=== PATIENT | male | born 1935 | race African-American/Black ===

== ENCOUNTER 2020-10-30 21:50 | Inpatient (IN) | payer BC, MEDICARE, OTHER ==
[~2020-10-30] VITALS: Ht 195.6 cm; Wt 62.8 kg
[~2020-10-30 21:50] MED LIST: ETOMIDATE 2MG/ML 10ML VIAL IV ONE; SUCCINYLCHOLINE CHLORIDE 200MG/10ML IV ONE
[2020-10-30] MEDS ORDERED: PIPERACILLIN/TAZ 3.375G PREMIX 50 ML IV ONE (22:15)
[2020-10-30] MEDS ORDERED: MIDAZOLAM HCL 2 MG/2 ML VIAL IV ONE (22:15)
[2020-10-30] MEDS ORDERED: SODIUM CHLORIDE 0.9% 1,000 ML IV ONE ×2 (22:15)
[2020-10-30] MEDS ORDERED: SUCCINYLCHOLINE CHLORIDE 200MG/10ML IV ONE (22:15)
[2020-10-30] MEDS ORDERED: FENTANYL CITRATE/PF 2,500 MCG in SODIUM CHLORIDE 0.9% 200 ML IV PRN (22:15)
[2020-10-30] MEDS ORDERED: ETOMIDATE 2MG/ML 10ML VIAL IV ONE (22:15)
[2020-10-30] MEDS ORDERED: VANCOMYCIN 1 G PREMIX 200 ML IV ONE (22:15)
[2020-10-30] MEDS: FENTANYL CITRATE/PF 2,500 MCG in SODIUM CHLORIDE 0.9% 200 ML IV PRN (22:33)
[2020-10-30 22:44] LABS: BG BASE EXCESS 1.9 mmol/L (-2.0-2.0); BG CARBOXYHEMOGLOBIN 0.3 % (0.5-1.5); BG DEOXYHEMOGLOBIN 0.3 % (0.0-5.0); BG FRACTION INSPIRED OXYGEN 100; BG METHEMOGLOBIN 0.3 % (0.0-1.5); BG OXYGEN SATURATION 99.7 % (92.0-98.5); BG OXYHEMOGLOBIN 99.1 % (94.0-97.0); BG PCO2 50.4 mmHg (35.0-45.0); BG PH 7.362 (7.350-7.450); BG PO2 409.8 mmHg (75.0-100.0); BG SAMPLE SITE RIGHT BRACHIAL; BG TOTAL HEMOGLOBIN 11.9 g/dL (12.0-18.0); BG VENT MODE VENT - AC
[2020-10-30 23:03] LABS: HEMATOCRIT. 31.5 % (42.0-52.0); HEMOGLOBIN. 10.5 g/dL (14.0-18.0); MEAN CORPUSCULAR HEMOGLOBIN 31.1 pg (28.0-32.0); MEAN CORPUSCULAR VOLUME 92.8 fL (80.0-94.0); MEAN PLATELET VOLUME 8.4 fl (7.4-10.4); PLATELET 281 x1000/uL (130-400); RED BLOOD CELL COUNT 3.39 mill/uL (4.7-6.1)
[2020-10-30 23:10] LABS: CHLORIDE 114 mEq/L (98-107)
[2020-10-30 23:13] LABS: INR 1.2
[2020-10-31] VITALS (49 sets, daily range): BP systolic 105–144; BP diastolic 53–92
[2020-10-31 00:15] LABS: PLATELET ESTIMATE NORMAL
[2020-10-31] MEDS ORDERED: MIDAZOLAM HCL 2 MG/2 ML VIAL IV ONE (01:30)
[2020-10-31 02:41] LABS: CLARITY URINE CLEAR (CLEAR); COLOR URINE YELLOW (YELLOW); KETONES URINE NEGATIVE (NEGATIVE); LEUKOCYTE ESTERASE URINE NEGATIVE (NEGATIVE); NITRITE URINE NEGATIVE (NEGATIVE); OCCULT BLOOD URINE NEGATIVE (NEGATIVE); PH URINE 6.5 (4.5-8.0); PROTEIN URINE 2+ (NEGATIVE); SPECIFIC GRAVITY URINE 1.027 (1.005-1.030); UROBILINOGEN URINE 0.2 E.U./dL (0.2-1.0)
[2020-10-31] MEDS: FENTANYL CITRATE/PF 2,500 MCG in SODIUM CHLORIDE 0.9% 200 ML IV PRN (10:55)
[2020-10-31 12:26] LABS: BG BASE EXCESS 3.6 mmol/L (-2.0-2.0); BG CARBOXYHEMOGLOBIN 0.3 % (0.5-1.5); BG DEOXYHEMOGLOBIN 3.3 % (0.0-5.0); BG HCO3 ACT 27.9 mmol/L (22.0-26.0); BG METHEMOGLOBIN 0.4 % (0.0-1.5); BG OXYGEN SATURATION 96.7 % (92.0-98.5); BG PCO2 41.5 mmHg (35.0-45.0); BG PH 7.446 (7.350-7.450); BG PO2 83.2 mmHg (75.0-100.0); BG SAMPLE SITE RIGHT RADIAL; BG TOTAL HEMOGLOBIN 11.3 g/dL (12.0-18.0); BG VENT MODE VENT - AC
[2020-10-31] MEDS ORDERED: DEXTROSE 50% WATER 50ML SYRINGE IV PRN ×2 (13:15→13:30)
[2020-10-31] MEDS ORDERED: ONDANSETRON HCL 4MG/2ML INJ IV PRN (13:15)
[2020-10-31] MEDS ORDERED: PIPERACILLIN/TAZ 3.375G PREMIX 50 ML IV SCH (13:15)
[2020-10-31] MEDS: SODIUM CHLORIDE 0.9% 1,000 ML IV SCH (14:13)
[2020-10-31] MEDS: VANCOMYCIN 750 MG PREMIX 150 ML IV SCH (14:41)
[2020-10-31] MEDS: PIPERACILLIN/TAZOBACTAM 3.375 G in DEXT 5% WATER 100 ML IV SCH ×2 (14:41→21:27)
[2020-10-31] MEDS ORDERED: ENOXAPARIN 40MG/0.4ML SYR SUBCUT SCH (15:00)
[2020-10-31] MEDS ORDERED: ENOXAPARIN 30MG/0.3ML SYR SUBCUT SCH (16:00)
[2020-10-31] MEDS ORDERED: INSULIN LISPRO 100 UNITS/ML SUBCUT SCH (17:00)
[2020-10-31] MEDS ORDERED: FENTANYL CITRATE/PF 1,000 MCG in SODIUM CHLORIDE 0.9% 80 ML IV PRN (17:00)
[2020-10-31] MEDS ORDERED: FENTANYL CITRATE 2,500 MCG in SODIUM CHLORIDE 0.9% 200 ML IV PRN (17:00)
[2020-10-31] MEDS: IPRATROPIUM/ALBUTEROL 0.5-3(2.5)MG/3ML NEB NEB SCH ×2 (17:39→20:32)
[2020-10-31] MEDS: INSULIN LISPRO 100 UNITS/ML SUBCUT SCH ×2 (17:57→23:48)
[2020-10-31] MEDS: BLOOD SUGAR DIAGNOSTIC STRIP TEST SCH ×2 (17:57→23:48)
[2020-10-31 19:49] LABS: CREATINE KINASE 33 IU/L (39-308)
[2020-10-31 19:52] LABS: CREATINE KINASE MB FRACTION < 1.0 ng/mL (0.5-3.6)
[2020-10-31] MEDS: LEVETIRACETAM 500MG/5ML CUP GT SCH (21:27)
[2020-10-31 23:15] LABS: CREATINE KINASE 32 IU/L (39-308)
[2020-10-31 23:17] LABS: CREATINE KINASE MB FRACTION < 1.0 ng/mL (0.5-3.6)
[2020-11-01] VITALS (51 sets, daily range): BP systolic 94–138; BP diastolic 50–122
[2020-11-01] MEDS: IPRATROPIUM/ALBUTEROL 0.5-3(2.5)MG/3ML NEB NEB SCH ×6 (00:34→20:09)
[2020-11-01] MEDS: VANCOMYCIN 750 MG PREMIX 150 ML IV SCH ×2 (02:04→14:13)
[2020-11-01 05:12] LABS: HEMATOCRIT. 29.7 % (42.0-52.0); HEMOGLOBIN. 9.5 g/dL (14.0-18.0); MEAN CORPUSCULAR HEMOGLOBIN 30.3 pg (28.0-32.0); MEAN CORPUSCULAR VOLUME 94.9 fL (80.0-94.0); MEAN PLATELET VOLUME 8.6 fl (7.4-10.4); PLATELET 238 x1000/uL (130-400); RED BLOOD CELL COUNT 3.13 mill/uL (4.7-6.1)
[2020-11-01 05:16] LABS: CHLORIDE 114 mEq/L (98-107)
[2020-11-01] MEDS: SODIUM CHLORIDE 0.9% 1,000 ML IV SCH ×2 (05:17→18:07)
[2020-11-01] MEDS: PIPERACILLIN/TAZOBACTAM 3.375 G in DEXT 5% WATER 100 ML IV SCH ×3 (05:56→21:46)
[2020-11-01] MEDS: INSULIN LISPRO 100 UNITS/ML SUBCUT SCH ×4 (05:59→23:42)
[2020-11-01] MEDS: BLOOD SUGAR DIAGNOSTIC STRIP TEST SCH ×4 (05:59→23:42)
[2020-11-01] MEDS ORDERED: POTASSIUM CHLORIDE 20MEQ/PACKET PO SCH (07:15)
[2020-11-01 08:27] LABS: BG BASE EXCESS 1.6 mmol/L (-2.0-2.0); BG CARBOXYHEMOGLOBIN 0.1 % (0.5-1.5); BG DEOXYHEMOGLOBIN 2.3 % (0.0-5.0); BG FRACTION INSPIRED OXYGEN 40; BG HCO3 ACT 25.7 mmol/L (22.0-26.0); BG METHEMOGLOBIN 0.7 % (0.0-1.5); BG OXYGEN SATURATION 97.7 % (92.0-98.5); BG OXYHEMOGLOBIN 96.9 % (94.0-97.0); BG PCO2 38.5 mmHg (35.0-45.0); BG PH 7.442 (7.350-7.450); BG PO2 112.5 mmHg (75.0-100.0); BG SAMPLE SITE LEFT RADIAL; BG TOTAL HEMOGLOBIN 10.1 g/dL (12.0-18.0); BG VENT MODE VENT - AC
[2020-11-01] MEDS: LEVETIRACETAM 500MG/5ML CUP GT SCH ×2 (10:21→21:46)
[2020-11-01] MEDS: ENOXAPARIN 30MG/0.3ML SYR SUBCUT SCH (18:06)
[2020-11-01 19:10] LABS: PLATELET ESTIMATE NORMAL
[2020-11-02] VITALS (36 sets, daily range): BP systolic 104–139; BP diastolic 52–81
[2020-11-02] MEDS: IPRATROPIUM/ALBUTEROL 0.5-3(2.5)MG/3ML NEB NEB SCH ×6 (01:01→20:44)
[2020-11-02 01:29] LABS: CHLORIDE 114 mEq/L (98-107)
[2020-11-02] MEDS: VANCOMYCIN 750 MG PREMIX 150 ML IV SCH ×2 (02:54→14:19)
[2020-11-02] MEDS: SODIUM CHLORIDE 0.9% 1,000 ML IV SCH ×2 (05:15→10:30)
[2020-11-02] MEDS: PIPERACILLIN/TAZOBACTAM 3.375 G in DEXT 5% WATER 100 ML IV SCH ×3 (05:56→21:08)
[2020-11-02] MEDS: INSULIN LISPRO 100 UNITS/ML SUBCUT SCH ×4 (06:00→23:20)
[2020-11-02] MEDS: BLOOD SUGAR DIAGNOSTIC STRIP TEST SCH ×4 (06:43→23:18)
[2020-11-02] MEDS: LEVETIRACETAM 500MG/5ML CUP GT SCH ×2 (09:52→20:27)
[2020-11-02 14:48] LABS: BG BASE EXCESS 5.7 mmol/L (-2.0-2.0); BG CARBOXYHEMOGLOBIN 0.3 % (0.5-1.5); BG DEOXYHEMOGLOBIN 3.4 % (0.0-5.0); BG HCO3 ACT 29.6 mmol/L (22.0-26.0); BG METHEMOGLOBIN 0.2 % (0.0-1.5); BG OXYGEN SATURATION 96.6 % (92.0-98.5); BG OXYHEMOGLOBIN 96.1 % (94.0-97.0); BG PCO2 40.7 mmHg (35.0-45.0); BG PO2 83.9 mmHg (75.0-100.0); BG SAMPLE SITE RIGHT RADIAL; BG TOTAL HEMOGLOBIN 10.4 g/dL (12.0-18.0); BG TOTAL RESPIRATORY RATE 16 b/min; BG VENT MODE VENT - CPAP
[2020-11-02] MEDS: ENOXAPARIN 30MG/0.3ML SYR SUBCUT SCH (17:43)
[2020-11-02] MEDS: METHYLPREDNISOLONE SOD SUCC 40 MG/ML VIAL IV SCH (19:24)
[2020-11-02] MEDS: NYSTATIN POWDER 15GM TOP SCH (20:27)
[2020-11-03] VITALS (46 sets, daily range): BP systolic 105–148; BP diastolic 48–85
[2020-11-03] MEDS: IPRATROPIUM/ALBUTEROL 0.5-3(2.5)MG/3ML NEB NEB SCH ×7 (00:14→23:47)
[2020-11-03] MEDS: VANCOMYCIN 750 MG PREMIX 150 ML IV SCH ×2 (01:08→13:52)
[2020-11-03] MEDS: PIPERACILLIN/TAZOBACTAM 3.375 G in DEXT 5% WATER 100 ML IV SCH ×3 (05:34→21:00)
[2020-11-03] MEDS: BLOOD SUGAR DIAGNOSTIC STRIP TEST SCH ×4 (05:34→23:41)
[2020-11-03] MEDS: METHYLPREDNISOLONE SOD SUCC 40 MG/ML VIAL IV SCH ×2 (05:34→18:19)
[2020-11-03] MEDS: INSULIN LISPRO 100 UNITS/ML SUBCUT SCH ×4 (05:43→23:46)
[2020-11-03 05:56] LABS: CHLORIDE 109 mEq/L (98-107)
[2020-11-03 05:58] LABS: HEMATOCRIT. 29.3 % (42.0-52.0); HEMOGLOBIN. 9.6 g/dL (14.0-18.0); MEAN CORPUSCULAR HEMOGLOBIN 30.4 pg (28.0-32.0); MEAN PLATELET VOLUME 8.7 fl (7.4-10.4); PLATELET 279 x1000/uL (130-400); RED BLOOD CELL COUNT 3.15 mill/uL (4.7-6.1); RED CELL DISTRIBUTION WIDTH 14.1 % (11.6-14.6)
[2020-11-03] MEDS: LEVETIRACETAM 500MG/5ML CUP GT SCH ×2 (08:33→20:10)
[2020-11-03] MEDS: NYSTATIN POWDER 15GM TOP SCH ×2 (08:33→20:10)
[2020-11-03 10:13] LABS: PLATELET ESTIMATE NORMAL
[2020-11-03 11:05] LABS: BG CARBOXYHEMOGLOBIN 0.3 % (0.5-1.5); BG DEOXYHEMOGLOBIN 1.6 % (0.0-5.0); BG FRACTION INSPIRED OXYGEN 35; BG METHEMOGLOBIN 0.3 % (0.0-1.5); BG OXYGEN SATURATION 98.4 % (92.0-98.5); BG OXYHEMOGLOBIN 97.8 % (94.0-97.0); BG PCO2 39.9 mmHg (35.0-45.0); BG PH 7.464 (7.350-7.450); BG PO2 129.5 mmHg (75.0-100.0); BG SAMPLE SITE RIGHT RADIAL; BG TOTAL HEMOGLOBIN 10.2 g/dL (12.0-18.0); BG VENT MODE VENT - CPAP
[2020-11-03] MEDS: ACETYLCYSTEINE 100MG/ML 10% VIAL 4ML INH SCH ×2 (16:24→23:47)
[2020-11-03] MEDS: ENOXAPARIN 30MG/0.3ML SYR SUBCUT SCH (18:19)
[2020-11-03] MEDS ORDERED: ACETAMINOPHEN 650MG/20.3ML UDC PO PRN (20:45)
[2020-11-04] VITALS (39 sets, daily range): BP systolic 104–150; BP diastolic 31–91
[2020-11-04] MEDS: VANCOMYCIN 750 MG PREMIX 150 ML IV SCH ×2 (01:05→14:16)
[2020-11-04] MEDS: IPRATROPIUM/ALBUTEROL 0.5-3(2.5)MG/3ML NEB NEB SCH ×5 (03:56→20:15)
[2020-11-04 04:29] LABS: HEMATOCRIT. 30.7 % (42.0-52.0); HEMOGLOBIN. 9.9 g/dL (14.0-18.0); MEAN CORPUSCULAR HEMOGLOBIN 30.3 pg (28.0-32.0); MEAN CORPUSCULAR VOLUME 93.6 fL (80.0-94.0); MEAN PLATELET VOLUME 8.7 fl (7.4-10.4); PLATELET 311 x1000/uL (130-400); RED BLOOD CELL COUNT 3.28 mill/uL (4.7-6.1); RED CELL DISTRIBUTION WIDTH 14.5 % (11.6-14.6)
[2020-11-04 04:41] LABS: CHLORIDE 107 mEq/L (98-107)
[2020-11-04] MEDS: BLOOD SUGAR DIAGNOSTIC STRIP TEST SCH ×4 (05:09→23:53)
[2020-11-04] MEDS: INSULIN LISPRO 100 UNITS/ML SUBCUT SCH ×4 (05:10→23:54)
[2020-11-04] MEDS: PIPERACILLIN/TAZOBACTAM 3.375 G in DEXT 5% WATER 100 ML IV SCH ×3 (05:11→21:27)
[2020-11-04] MEDS: METHYLPREDNISOLONE SOD SUCC 40 MG/ML VIAL IV SCH ×2 (05:11→17:48)
[2020-11-04 07:41] LABS: BG BASE EXCESS 8.3 mmol/L (-2.0-2.0); BG CARBOXYHEMOGLOBIN 0.3 % (0.5-1.5); BG DEOXYHEMOGLOBIN 1.9 % (0.0-5.0); BG FRACTION INSPIRED OXYGEN 35; BG HCO3 ACT 32.7 mmol/L (22.0-26.0); BG METHEMOGLOBIN 0.2 % (0.0-1.5); BG OXYGEN SATURATION 98.1 % (92.0-98.5); BG OXYHEMOGLOBIN 97.6 % (94.0-97.0); BG PH 7.479 (7.350-7.450); BG PO2 109.6 mmHg (75.0-100.0); BG SAMPLE SITE RIGHT RADIAL; BG TOTAL HEMOGLOBIN 9.6 g/dL (12.0-18.0); BG TOTAL RESPIRATORY RATE 18 b/min; BG VENT MODE VENT - CPAP
[2020-11-04] MEDS: ACETYLCYSTEINE 100MG/ML 10% VIAL 4ML INH SCH ×3 (08:03→15:56)
[2020-11-04] MEDS: LEVETIRACETAM 500MG/5ML CUP GT SCH ×2 (09:12→20:21)
[2020-11-04] MEDS: NYSTATIN POWDER 15GM TOP SCH ×2 (09:13→20:23)
[2020-11-04 10:32] LABS: PLATELET ESTIMATE NORMAL
[2020-11-04] MEDS ORDERED: MORPHINE SULFATE 2 MG/ML CPJ (NOT FOR IM USE) IV PRN (14:45)
[2020-11-04] MEDS ORDERED: HYDRALAZINE 20MG/ML VIAL IV PRN (14:45)
[2020-11-04] MEDS: LORAZEPAM 2MG/ML CPJ IV PRN ×2 (16:01→21:59)
[2020-11-04] MEDS: ENOXAPARIN 30MG/0.3ML SYR SUBCUT SCH (17:48)
[2020-11-04] MEDS: FAMOTIDINE 20MG TABLET PO SCH (20:21)
[2020-11-04] MEDS: ATORVASTATIN CALCIUM 40MG TABLET GT SCH (23:56)
[2020-11-04] MEDS: CLOPIDOGREL 75MG TABLET GT SCH (23:56)
[2020-11-04] MEDS: ASPIRIN 81MG TABLET GT SCH (23:56)
[2020-11-05] VITALS (48 sets, daily range): BP systolic 66–140; BP diastolic 21–78
[2020-11-05] MEDS: ACETYLCYSTEINE 100MG/ML 10% VIAL 4ML INH SCH ×2 (00:12→08:54)
[2020-11-05] MEDS: IPRATROPIUM/ALBUTEROL 0.5-3(2.5)MG/3ML NEB NEB SCH ×6 (00:12→20:28)
[2020-11-05] MEDS: VANCOMYCIN 750 MG PREMIX 150 ML IV SCH (01:21)
[2020-11-05] MEDS: METHYLPREDNISOLONE SOD SUCC 40 MG/ML VIAL IV SCH ×2 (05:37→17:57)
[2020-11-05] MEDS: INSULIN LISPRO 100 UNITS/ML SUBCUT SCH ×3 (05:37→18:00)
[2020-11-05] MEDS: BLOOD SUGAR DIAGNOSTIC STRIP TEST SCH ×3 (05:37→18:53)
[2020-11-05] MEDS: PIPERACILLIN/TAZOBACTAM 3.375 G in DEXT 5% WATER 100 ML IV SCH ×3 (05:37→21:21)
[2020-11-05 05:57] LABS: CHLORIDE 107 mEq/L (98-107)
[2020-11-05 06:06] LABS: HEMATOCRIT. 27.9 % (42.0-52.0); MEAN CORPUSCULAR HEMOGLOBIN 30.3 pg (28.0-32.0); MEAN CORPUSCULAR VOLUME 93.5 fL (80.0-94.0); MEAN PLATELET VOLUME 8.7 fl (7.4-10.4); PLATELET 305 x1000/uL (130-400); RED BLOOD CELL COUNT 2.99 mill/uL (4.7-6.1); RED CELL DISTRIBUTION WIDTH 14.5 % (11.6-14.6)
[2020-11-05 07:59] LABS: BG BASE EXCESS 10.6 mmol/L (-2.0-2.0); BG CARBOXYHEMOGLOBIN 0.3 % (0.5-1.5); BG DEOXYHEMOGLOBIN 2.8 % (0.0-5.0); BG FRACTION INSPIRED OXYGEN 30; BG HCO3 ACT 35.1 mmol/L (22.0-26.0); BG METHEMOGLOBIN 0.3 % (0.0-1.5); BG OXYGEN SATURATION 97.2 % (92.0-98.5); BG OXYHEMOGLOBIN 96.6 % (94.0-97.0); BG PCO2 46.8 mmHg (35.0-45.0); BG PH 7.493 (7.350-7.450); BG PO2 89.6 mmHg (75.0-100.0); BG SAMPLE SITE RIGHT RADIAL; BG TOTAL HEMOGLOBIN 9.9 g/dL (12.0-18.0); BG VENT MODE VENT - CPAP
[2020-11-05] MEDS: CLOPIDOGREL 75MG TABLET GT SCH (10:36)
[2020-11-05] MEDS: ASPIRIN 81MG TABLET GT SCH (10:36)
[2020-11-05] MEDS: LEVETIRACETAM 500MG/5ML CUP GT SCH ×2 (10:36→20:38)
[2020-11-05] MEDS: NYSTATIN POWDER 15GM TOP SCH ×2 (10:38→22:20)
[2020-11-05] MEDS ORDERED: POTASSIUM CHLORIDE 20MEQ TABLET SR PO NR (10:45)
[2020-11-05 10:59] LABS: PLATELET ESTIMATE NORMAL
[2020-11-05] MEDS: LORAZEPAM 2MG/ML CPJ IV PRN (17:57)
[2020-11-05] MEDS: FAMOTIDINE 20MG TABLET PO SCH (20:38)
[2020-11-05] MEDS: ATORVASTATIN CALCIUM 40MG TABLET GT SCH (20:38)
[2020-11-06] VITALS (49 sets, daily range): BP systolic 93–138; BP diastolic 46–80
[2020-11-06] MEDS: BLOOD SUGAR DIAGNOSTIC STRIP TEST SCH ×4 (00:22→17:14)
[2020-11-06] MEDS: IPRATROPIUM/ALBUTEROL 0.5-3(2.5)MG/3ML NEB NEB SCH ×6 (00:24→20:44)
[2020-11-06] MEDS: ACETYLCYSTEINE 100MG/ML 10% VIAL 4ML INH SCH ×3 (00:24→15:31)
[2020-11-06] MEDS: PIPERACILLIN/TAZOBACTAM 3.375 G in DEXT 5% WATER 100 ML IV SCH ×4 (04:28→22:20)
[2020-11-06 05:49] LABS: BASOPHILS % 0.1 % (0.0-2.0); EOSINOPHILS % 0.7 % (0.0-5.0); HEMATOCRIT. 27.9 % (42.0-52.0); HEMOGLOBIN. 8.9 g/dL (14.0-18.0); LYMPHOCYTES % 8.3 % (20.0-50.0); MEAN CORPUSCULAR HEMOGLOBIN 30.1 pg (28.0-32.0); MEAN CORPUSCULAR VOLUME 94.1 fL (80.0-94.0); MEAN PLATELET VOLUME 8.7 fl (7.4-10.4); MONOCYTES % 9.3 % (2.0-8.0); NEUTROPHILS % 81.6 % (40.0-76.0); PLATELET 294 x1000/uL (130-400); RED BLOOD CELL COUNT 2.97 mill/uL (4.7-6.1); RED CELL DISTRIBUTION WIDTH 14.4 % (11.6-14.6)
[2020-11-06] MEDS: INSULIN LISPRO 100 UNITS/ML SUBCUT SCH ×4 (05:56→17:14)
[2020-11-06] MEDS: METHYLPREDNISOLONE SOD SUCC 40 MG/ML VIAL IV SCH (05:56)
[2020-11-06 05:57] LABS: CHLORIDE 108 mEq/L (98-107)
[2020-11-06] MEDS: CLOPIDOGREL 75MG TABLET GT SCH (08:23)
[2020-11-06] MEDS: NYSTATIN POWDER 15GM TOP SCH ×2 (08:23→20:03)
[2020-11-06] MEDS: ASPIRIN 81MG TABLET GT SCH (08:23)
[2020-11-06] MEDS: LEVETIRACETAM 500MG/5ML CUP GT SCH ×2 (08:23→20:02)
[2020-11-06] MEDS: FLUCONAZOLE 100MG TABLET PO SCH (15:49)
[2020-11-06] MEDS: ATORVASTATIN CALCIUM 40MG TABLET GT SCH (20:02)
[2020-11-06] MEDS: FAMOTIDINE 20MG TABLET PO SCH (20:02)
[2020-11-07] VITALS (48 sets, daily range): BP systolic 94–140; BP diastolic 50–90
[2020-11-07] MEDS: BLOOD SUGAR DIAGNOSTIC STRIP TEST SCH ×5 (00:03→23:11)
[2020-11-07] MEDS: IPRATROPIUM/ALBUTEROL 0.5-3(2.5)MG/3ML NEB NEB SCH ×6 (00:19→20:42)
[2020-11-07] MEDS: ACETYLCYSTEINE 100MG/ML 10% VIAL 4ML INH SCH ×3 (00:19→15:49)
[2020-11-07] MEDS: PIPERACILLIN/TAZOBACTAM 3.375 G in DEXT 5% WATER 100 ML IV SCH ×4 (03:45→21:38)
[2020-11-07 05:42] LABS: BASOPHILS % 0.1 % (0.0-2.0); EOSINOPHILS % 1.5 % (0.0-5.0); HEMATOCRIT. 27.9 % (42.0-52.0); HEMOGLOBIN. 8.8 g/dL (14.0-18.0); LYMPHOCYTES % 9.8 % (20.0-50.0); MEAN CORPUSCULAR HEMOGLOBIN 29.8 pg (28.0-32.0); MEAN CORPUSCULAR VOLUME 94.3 fL (80.0-94.0); MEAN PLATELET VOLUME 8.7 fl (7.4-10.4); MONOCYTES % 8.3 % (2.0-8.0); NEUTROPHILS % 80.3 % (40.0-76.0); PLATELET 282 x1000/uL (130-400); RED BLOOD CELL COUNT 2.96 mill/uL (4.7-6.1); RED CELL DISTRIBUTION WIDTH 14.5 % (11.6-14.6)
[2020-11-07 05:51] LABS: CHLORIDE 107 mEq/L (98-107)
[2020-11-07] MEDS: INSULIN LISPRO 100 UNITS/ML SUBCUT SCH ×5 (06:00→23:11)
[2020-11-07] MEDS: METHYLPREDNISOLONE SOD SUCC 40 MG/ML VIAL IV SCH (08:20)
[2020-11-07] MEDS: LEVETIRACETAM 500MG/5ML CUP GT SCH ×2 (08:20→20:12)
[2020-11-07] MEDS: CLOPIDOGREL 75MG TABLET GT SCH (08:20)
[2020-11-07] MEDS: ASPIRIN 81MG TABLET GT SCH (08:20)
[2020-11-07] MEDS: FLUCONAZOLE 100MG TABLET PO SCH (08:21)
[2020-11-07] MEDS: NYSTATIN POWDER 15GM TOP SCH ×2 (08:22→20:12)
[2020-11-07 08:51] LABS: BG BASE EXCESS 5.6 mmol/L (-2.0-2.0); BG CARBOXYHEMOGLOBIN 0.1 % (0.5-1.5); BG DEOXYHEMOGLOBIN 2.8 % (0.0-5.0); BG FRACTION INSPIRED OXYGEN 30; BG HCO3 ACT 29.4 mmol/L (22.0-26.0); BG OXYGEN SATURATION 97.2 % (92.0-98.5); BG OXYHEMOGLOBIN 96.1 % (94.0-97.0); BG PCO2 39.8 mmHg (35.0-45.0); BG PH 7.486 (7.350-7.450); BG PO2 102.1 mmHg (75.0-100.0); BG SAMPLE SITE RIGHT RADIAL; BG TOTAL HEMOGLOBIN 9.7 g/dL (12.0-18.0); BG VENT MODE VENT - CPAP
[2020-11-07] MEDS: ATORVASTATIN CALCIUM 40MG TABLET GT SCH (20:12)
[2020-11-07] MEDS: FAMOTIDINE 20MG TABLET PO SCH (20:12)
[2020-11-08] VITALS (43 sets, daily range): BP systolic 84–137; BP diastolic 50–76
[2020-11-08] MEDS: ACETYLCYSTEINE 100MG/ML 10% VIAL 4ML INH SCH ×3 (00:19→16:37)
[2020-11-08] MEDS: IPRATROPIUM/ALBUTEROL 0.5-3(2.5)MG/3ML NEB NEB SCH ×6 (00:19→20:23)
[2020-11-08] MEDS: PIPERACILLIN/TAZOBACTAM 3.375 G in DEXT 5% WATER 100 ML IV SCH ×4 (03:22→21:46)
[2020-11-08 04:49] LABS: BASOPHILS % 0.1 % (0.0-2.0); EOSINOPHILS % 1.2 % (0.0-5.0); HEMATOCRIT. 29.4 % (42.0-52.0); HEMOGLOBIN. 9.4 g/dL (14.0-18.0); LYMPHOCYTES % 7.4 % (20.0-50.0); MEAN CORPUSCULAR HEMOGLOBIN 30.3 pg (28.0-32.0); MEAN CORPUSCULAR VOLUME 94.7 fL (80.0-94.0); MEAN PLATELET VOLUME 8.6 fl (7.4-10.4); MONOCYTES % 8.7 % (2.0-8.0); NEUTROPHILS % 82.6 % (40.0-76.0); PLATELET 285 x1000/uL (130-400); RED CELL DISTRIBUTION WIDTH 14.1 % (11.6-14.6)
[2020-11-08 05:00] LABS: CHLORIDE 106 mEq/L (98-107)
[2020-11-08] MEDS: INSULIN LISPRO 100 UNITS/ML SUBCUT SCH ×3 (05:16→17:09)
[2020-11-08] MEDS: BLOOD SUGAR DIAGNOSTIC STRIP TEST SCH ×3 (05:16→17:09)
[2020-11-08] MEDS: METHYLPREDNISOLONE SOD SUCC 40 MG/ML VIAL IV SCH (09:00)
[2020-11-08] MEDS: FLUCONAZOLE 100MG TABLET PO SCH (09:00)
[2020-11-08] MEDS: LEVETIRACETAM 500MG/5ML CUP GT SCH ×2 (09:00→20:03)
[2020-11-08] MEDS: ASPIRIN 81MG TABLET GT SCH (09:00)
[2020-11-08] MEDS: CLOPIDOGREL 75MG TABLET GT SCH (09:00)
[2020-11-08] MEDS: NYSTATIN POWDER 15GM TOP SCH ×2 (09:01→20:04)
[2020-11-08] MEDS: FAMOTIDINE 20MG TABLET PO SCH (20:03)
[2020-11-08] MEDS: ATORVASTATIN CALCIUM 40MG TABLET GT SCH (20:04)
[2020-11-08] MEDS ORDERED: HYDRALAZINE 10 MG in SODIUM CHLORIDE 0.9% 49.5 ML IV PRN (23:00)
[2020-11-09] VITALS: BP 116/64
[2020-11-09] MEDS: BLOOD SUGAR DIAGNOSTIC STRIP TEST SCH ×4 (00:26→17:47)
[2020-11-09] MEDS: IPRATROPIUM/ALBUTEROL 0.5-3(2.5)MG/3ML NEB NEB SCH ×6 (01:00→21:52)
[2020-11-09] MEDS: PIPERACILLIN/TAZOBACTAM 3.375 G in DEXT 5% WATER 100 ML IV SCH ×4 (03:55→21:25)
[2020-11-09 04:00] VITALS: BP 90/65
[2020-11-09] MEDS: INSULIN LISPRO 100 UNITS/ML SUBCUT SCH ×4 (06:00→18:09)
[2020-11-09 08:00] VITALS: BP 97/57
[2020-11-09] MEDS: LEVETIRACETAM 500MG/5ML CUP GT SCH ×2 (09:08→20:43)
[2020-11-09] MEDS: METHYLPREDNISOLONE SOD SUCC 40 MG/ML VIAL IV SCH (09:08)
[2020-11-09] MEDS: ASPIRIN 81MG TABLET GT SCH (09:08)
[2020-11-09] MEDS: FLUCONAZOLE 100MG TABLET PO SCH (09:08)
[2020-11-09] MEDS: NYSTATIN POWDER 15GM TOP SCH ×2 (09:09→20:44)
[2020-11-09] MEDS: CLOPIDOGREL 75MG TABLET GT SCH (09:09)
[2020-11-09 12:00] VITALS: BP 114/64
[2020-11-09 16:00] VITALS: BP 124/69
[2020-11-09 20:00] VITALS: BP 145/70
[2020-11-09] MEDS: ATORVASTATIN CALCIUM 40MG TABLET GT SCH (20:43)
[2020-11-09] MEDS: FAMOTIDINE 20MG TABLET PO SCH (20:44)
[2020-11-10] VITALS: BP 130/74
[2020-11-10] MEDS: BLOOD SUGAR DIAGNOSTIC STRIP TEST SCH ×5 (00:13→23:49)
[2020-11-10] MEDS: IPRATROPIUM/ALBUTEROL 0.5-3(2.5)MG/3ML NEB NEB SCH ×6 (01:52→20:40)
[2020-11-10] MEDS: PIPERACILLIN/TAZOBACTAM 3.375 G in DEXT 5% WATER 100 ML IV SCH ×2 (03:58→11:21)
[2020-11-10 04:00] VITALS: BP 121/68
[2020-11-10] MEDS: INSULIN LISPRO 100 UNITS/ML SUBCUT SCH ×5 (06:00→23:49)
[2020-11-10] MEDS: ASPIRIN 81MG TABLET GT SCH (08:58)
[2020-11-10] MEDS: LEVETIRACETAM 500MG/5ML CUP GT SCH ×2 (08:58→20:44)
[2020-11-10] MEDS: CLOPIDOGREL 75MG TABLET GT SCH (08:58)
[2020-11-10] MEDS: FLUCONAZOLE 100MG TABLET PO SCH (08:58)
[2020-11-10] MEDS: METHYLPREDNISOLONE SOD SUCC 40 MG/ML VIAL IV SCH (08:58)
[2020-11-10] MEDS: NYSTATIN POWDER 15GM TOP SCH ×2 (08:59→20:44)
[2020-11-10 12:00] VITALS: BP 126/58
[2020-11-10] MEDS ORDERED: KEPP500 MT (13:56)
[2020-11-10] MEDS ORDERED: ATOR80TA MT (13:56)
[2020-11-10] MEDS ORDERED: ASPI-1497 MT (13:56)
[2020-11-10] MEDS ORDERED: CLOP-31 MT (13:56)
[2020-11-10 16:00] VITALS: BP 109/62
[2020-11-10 20:00] VITALS: BP 110/64
[2020-11-10] MEDS: ATORVASTATIN CALCIUM 40MG TABLET GT SCH (20:44)
[2020-11-10] MEDS: FAMOTIDINE 20MG TABLET PO SCH (20:44)
[2020-11-11] VITALS: BP 101/61
[2020-11-11] MEDS: IPRATROPIUM/ALBUTEROL 0.5-3(2.5)MG/3ML NEB NEB SCH ×5 (00:25→16:20)
[2020-11-11 04:00] VITALS: BP 109/59
[2020-11-11] MEDS: BLOOD SUGAR DIAGNOSTIC STRIP TEST SCH ×3 (06:00→18:00)
[2020-11-11] MEDS: INSULIN LISPRO 100 UNITS/ML SUBCUT SCH ×3 (06:00→17:59)
[2020-11-11 06:57] VITALS: BP 118/60
[2020-11-11 08:00] VITALS: BP 130/56
[2020-11-11] MEDS ORDERED: APIXABAN 5 MG TABLET PO SCH ×2 (09:00)
[2020-11-11] MEDS: CLOPIDOGREL 75MG TABLET GT SCH (09:14)
[2020-11-11] MEDS: LEVETIRACETAM 500MG/5ML CUP GT SCH (09:14)
[2020-11-11] MEDS: ASPIRIN 81MG TABLET GT SCH (09:14)
[2020-11-11] MEDS: METHYLPREDNISOLONE SOD SUCC 40 MG/ML VIAL IV SCH (09:14)
[2020-11-11] MEDS: NYSTATIN POWDER 15GM TOP SCH (09:15)
[2020-11-11 12:00] VITALS: BP 117/64
[2020-11-11 16:00] VITALS: BP 118/60
[2020-11-18] MEDS ORDERED: APIXABAN 5 MG TABLET PO SCH (09:00)
== END 2020-11-11 18:10 | disposition hospice, home (50) | DRG 207 ==
LOC: ER 21:50 → MICUSO 23:46 → EDBEDREQSVC 23:47 → EDBEDREQTM 23:47 → EDBEDREQ 23:47 → ENRESERV 10-31 07:38 → MICUSO 10-31 23:45 → 6EST 11-08 22:30
PROVIDERS: ADMIT Internal Medicine; ATTEND Internal Medicine
PROC: 5A1955Z Respiratory Ventilation, Greater than 96 Consecutive Hours (ICD-10-PCS; principal; 2020-10-30)
PROC: 0BH17EZ Insertion of Endotracheal Airway into Trachea, Via Natural or Artificial Opening (ICD-10-PCS; 2020-10-30)
PROC: 4A10X4Z Monitoring of Central Nervous Electrical Activity, External Approach (ICD-10-PCS; 2020-11-06)
DX: J69.0 Pneumonitis due to inhalation of food and vomit (principal); J96.01 Acute respiratory failure with hypoxia; I63.9 Cerebral infarction, unspecified; G93.41 Metabolic encephalopathy; Z99.11 Dependence on respirator [ventilator] status; Z66 Do not resuscitate; G40.909 Epilepsy, unspecified, not intractable, without status epilepticus; E11.649 Type 2 diabetes mellitus with hypoglycemia without coma; R13.10 Dysphagia, unspecified; D64.9 Anemia, unspecified; J45.909 Unspecified asthma, uncomplicated; B37.9 Candidiasis, unspecified; B96.89 Other specified bacterial agents as the cause of diseases classified elsewhere; I10 Essential (primary) hypertension; Z93.1 Gastrostomy status; Z86.16 Personal history of COVID-19; Z20.822 Contact with and (suspected) exposure to COVID-19
CPT/HCPCS: 36415; 36600; 70551; 71045; 80048; 80053; 80202; 81003; 82140; 82375; 82550; 82553; 82805; 82962; 83036; 83605; 83880; 84145; 84484; 85025; 87070; 87077; 87186; 93005; 93306; 93880; 93970; 94002; 94003; 94640; 95816; 99291; A6261; J0330; J1650; J1815; J2060; J2250; J2543; J2920; J3010; J3370; J3490; J7030; J7040; J7050; J7060; J7608; U0003